=== PATIENT | female | born 1955 | race Two or more races ===

== ENCOUNTER 2022-01-11 09:10 | Outpatient (CLI) | payer OTHER | END 2022-01-11 09:17 | disposition home or self-care (01) | LOC: RAD 09:10 | PROVIDERS: ATTEND Orthopaedic Surgery | DX: M25.561 Pain in right knee (principal); M25.562 Pain in left knee ==

== ENCOUNTER 2022-02-02 07:30 | Outpatient (CLI) | payer OTHER | END 2022-02-02 07:38 | disposition home or self-care (01) | LOC: RAD 07:30 | PROVIDERS: ATTEND Orthopaedic Surgery | DX: R07.9 Chest pain, unspecified (principal) ==

== ENCOUNTER 2022-02-08 12:45 | Inpatient (IN) | payer OTHER ==
[~2022-02-08] VITALS: Ht 154.9 cm; Wt 97.5 kg
[2022-02-08] MEDS ORDERED: GLYBURIDE-METF1 EACH PO (15:24)
[2022-02-08] MEDS ORDERED: ENALAPRIL MALEAT5 MG PO (15:24)
[2022-02-08] MEDS ORDERED: COLLAGEN 15001 EACH PO (15:25)
[2022-02-13] MEDS ORDERED: CLOTRIMAZOLE-BE15 G1 (09:10)
== END 2022-02-15 17:33 | disposition home or self-care (01) | DRG 470 ==
LOC: O/R 02-13 06:38 → SURH 02-13 06:38 → SURG 02-13 12:45 → SURH 02-13 12:56 → SURG 02-13 16:00 → SURH 02-15 17:33
PROVIDERS: ADMIT Orthopaedic Surgery; ATTEND Orthopaedic Surgery
PROC: 0SRC0J9 Replacement of Right Knee Joint with Synthetic Substitute, Cemented, Open Approach (ICD-10-PCS; principal; 2022-02-13 16:00)
DX: M17.11 Unilateral primary osteoarthritis, right knee (principal); D62 Acute posthemorrhagic anemia; M85.661 Other cyst of bone, right lower leg; I10 Essential (primary) hypertension; E11.9 Type 2 diabetes mellitus without complications; Z20.822 Contact with and (suspected) exposure to COVID-19